=== PATIENT | female | born 1955 | race Caucasian/White ===

== ENCOUNTER 2016-05-16 14:17 | Inpatient (IN) | payer MEDICAID, OTHER ==
[~2016-05-16] VITALS: Ht 162.6 cm; Wt 86.8 kg
[~2016-05-16 14:17] MED LIST: DIPH25CA85 PO; DIVA500T35 PO; DIVA500T52 PO; FLUP25VI5 IM; LURA40 PO; OLAN10TA3 PO; OLAN10TA6 PO; QUET100T PO; QUET200T PO; QUET25TA PO
[2016-05-16] MEDS ORDERED: HALOPERIDOL LACTATE 5 MG/ML VIAL IM ONE (16:00)
[2016-05-16 16:52] LABS: ANION GAP 10 mmol/L (8-16); CALCIUM, TOTAL 9.5 mg/dL (8.8-10.5); CARBON DIOXIDE 28 mmol/L (22-29); CHLORIDE 106 mmol/L (98-107); CREATININE 0.97 mg/dL (0.60-1.30); GLOMERULAR FILTR. RATE CALC 59 mL/min (>60); POTASSIUM 4.3 mmol/L (3.5-5.1); SODIUM SERUM 144 mmol/L (136-145); UREA NITROGEN, BLOOD 17 mg/dL (7-18)
[2016-05-16 17:00] LABS: ALANINE AMINOTRANSFERASE 25 U/L (12-78); ALBUMIN 3.9 g/dL (3.4-5.0); ASPARTATE AMINOTRANSFERASE 31 U/L (15-37); BILIRUBIN,TOTAL 0.7 mg/dL (0.1-1.0); TOTAL PROTEIN, SERUM 7.8 g/dL (6.4-8.2)
[2016-05-16 17:10] LABS: BASOPHILS % (AUTO) 0.6 % (0.0-2.0); EOSINOPHILS % (AUTO) 2.2 % (1.0-6.0); HEMATOCRIT 42.7 % (36-46); HEMOGLOBIN 13.6 g/dL (12.0-16.0); LYMPHOCYTES # (AUTO) 2.4 K/uL (1.0-4.8); LYMPHOCYTES % (AUTO) 31.4 % (22.0-44.0); MEAN CORPUSCULAR HEMOGLOBIN 25.6 pg (26.0-34.0); MEAN CORPUSCULAR HGB CONC 31.8 G/dL (31.0-37.0); MEAN CORPUSCULAR VOLUME 80 fL (80-100); MONOCYTES # (AUTO) 0.6 K/uL (0.1-1.0); MONOCYTES % (AUTO) 8.2 % (2.0-9.0); NEUTROPHILS # (AUTO) 4.4 K/uL (1.8-7.7); NEUTROPHILS % (AUTO) 57.6 % (40.0-70.0); PLATELET COUNT (AUTO) 197 K/uL (150-450); RED BLOOD CELL COUNT(AUTO) 5.31 MIL/uL (4.00-5.20); RED CELL DISTRIBUTION WIDTH 16.1 % (11.5-14.5); WHITE BLOOD COUNT (AUTO) 7.6 K/uL (4.5-11.0)
[2016-05-16 17:16] LABS: VALPROIC ACID < 3 mcg/mL (50-100)
[2016-05-16 21:29] VITALS: BP 140/86
[2016-05-17 07:04] VITALS: BP 129/74
[2016-05-17 08:39] VITALS: BP 107/56
[2016-05-17] MEDS: NYSTATIN 15 GM POWDER BOTTLE TP SCH ×2 (08:58→16:31)
[2016-05-17] MEDS: LORazepam 2 MG TABLET PO PRN (10:21)
[2016-05-17] MEDS: HALOPERIDOL 5 MG TABLET PO PRN (10:21)
[2016-05-17 16:26] VITALS: BP 116/82
[2016-05-17] MEDS: FluPHENAZine HCL 5 MG TABLET PO SCH (17:07)
[2016-05-17] MEDS: BENZTROPINE MESYLATE 0.5 MG TABLET PO SCH (17:07)
[2016-05-18] MEDS: ZOLPIDEM TARTRATE 10 MG TABLET PO PRN (02:06)
[2016-05-18 04:00] VITALS: BP 136/84
[2016-05-18 08:26] VITALS: BP 135/81
[2016-05-18] MEDS: NYSTATIN 15 GM POWDER BOTTLE TP SCH ×3 (08:43→17:07)
[2016-05-18] MEDS: BENZTROPINE MESYLATE 0.5 MG TABLET PO SCH ×2 (08:44→17:06)
[2016-05-18] MEDS: FluPHENAZine HCL 5 MG TABLET PO SCH ×2 (08:44→16:32)
[2016-05-18 16:15] VITALS: BP 133/72
[2016-05-18] MEDS: LORazepam 2 MG TABLET PO PRN ×2 (16:31→17:07)
[2016-05-19 06:44] VITALS: BP 136/61
[2016-05-19] MEDS: IBUPROFEN 400 MG TABLET PO PRN (06:56)
[2016-05-19 08:17] VITALS: BP 123/83
[2016-05-19 08:21] LABS: HEMOGLOBIN A1C 6.5 % (4.5-6.2)
[2016-05-19] MEDS: FluPHENAZine HCL 5 MG TABLET PO SCH ×2 (08:25→16:42)
[2016-05-19] MEDS: BENZTROPINE MESYLATE 0.5 MG TABLET PO SCH ×2 (08:25→16:43)
[2016-05-19] MEDS: NICOTINE 7 MG/24 HOUR PATCH TD SCH (08:31)
[2016-05-19] MEDS: NYSTATIN 15 GM POWDER BOTTLE TP SCH ×2 (08:31→16:43)
[2016-05-19] MEDS: LORazepam 2 MG TABLET PO PRN ×2 (08:33→16:43)
[2016-05-19 08:42] LABS: THYROID STIMULATING HORMONE 1.93 uIU/mL (0.36-3.74)
[2016-05-19 16:10] VITALS: BP 129/60
[2016-05-19] MEDS: ZOLPIDEM TARTRATE 10 MG TABLET PO PRN (20:59)
[2016-05-20 06:44] VITALS: BP 139/94
[2016-05-20] MEDS: BENZTROPINE MESYLATE 0.5 MG TABLET PO SCH ×2 (08:29→16:10)
[2016-05-20] MEDS: IBUPROFEN 400 MG TABLET PO PRN (08:29)
[2016-05-20] MEDS: NICOTINE 7 MG/24 HOUR PATCH TD SCH (08:29)
[2016-05-20] MEDS: FluPHENAZine HCL 5 MG TABLET PO SCH ×2 (08:29→16:10)
[2016-05-20] MEDS: NYSTATIN 15 GM POWDER BOTTLE TP SCH ×2 (08:29→16:10)
[2016-05-20 16:00] VITALS: BP 140/86
[2016-05-20] MEDS: LORazepam 2 MG TABLET PO PRN (17:46)
[2016-05-20] MEDS: ZOLPIDEM TARTRATE 10 MG TABLET PO PRN (21:07)
[2016-05-21 07:25] VITALS: BP 143/67
[2016-05-21 08:22] LABS: GLUCOSE,POINT OF CARE 138 MG/DL (70-110)
[2016-05-21 08:31] VITALS: BP 125/65
[2016-05-21] MEDS ORDERED: FluPHENAZine HCL 10 MG TABLET PO SCH (09:00)
[2016-05-21] MEDS: NICOTINE 7 MG/24 HOUR PATCH TD SCH (09:18)
[2016-05-21] MEDS: NYSTATIN 15 GM POWDER BOTTLE TP SCH ×2 (09:18→16:12)
[2016-05-21] MEDS: BENZTROPINE MESYLATE 1 MG TABLET PO SCH ×2 (09:18→16:11)
[2016-05-21 10:25] VITALS: BP 128/72
[2016-05-21] MEDS: ACETAMINOPHEN 325 MG TABLET PO PRN (10:29)
[2016-05-21] MEDS ORDERED: LOPERAMIDE HCL 2 MG CAPSULE PO PRN (10:30)
[2016-05-21 11:11] LABS: GLUCOSE,POINT OF CARE 96 MG/DL (70-110)
[2016-05-21 11:29] VITALS: BP 124/76
[2016-05-21 16:00] VITALS: BP 145/84
[2016-05-21] MEDS: LORazepam 2 MG TABLET PO PRN (16:11)
[2016-05-21] MEDS: CloZAPine 100 MG TABLET PO SCH (16:28)
[2016-05-21] MEDS: IBUPROFEN 400 MG TABLET PO PRN (17:11)
[2016-05-22 06:22] VITALS: BP 140/95
[2016-05-22 08:04] VITALS: BP 138/88
[2016-05-22] MEDS: BENZTROPINE MESYLATE 1 MG TABLET PO SCH ×2 (08:11→16:44)
[2016-05-22] MEDS: NICOTINE 7 MG/24 HOUR PATCH TD SCH (08:11)
[2016-05-22] MEDS: CloZAPine 100 MG TABLET PO SCH ×2 (08:11→16:44)
[2016-05-22] MEDS: NYSTATIN 15 GM POWDER BOTTLE TP SCH ×2 (08:12→17:11)
[2016-05-22] MEDS: ACETAMINOPHEN 325 MG TABLET PO PRN (09:43)
[2016-05-22 09:57] LABS: GLUCOSE,POINT OF CARE 99 MG/DL (70-110)
[2016-05-22] MEDS: HALOPERIDOL 5 MG TABLET PO PRN (14:18)
[2016-05-22 16:17] VITALS: BP 154/79
[2016-05-22] MEDS: LORazepam 2 MG TABLET PO PRN (16:44)
[2016-05-22] MEDS: IBUPROFEN 400 MG TABLET PO PRN (18:03)
[2016-05-23 03:15] VITALS: BP 162/105
[2016-05-23] MEDS: IBUPROFEN 400 MG TABLET PO PRN ×2 (03:15→16:50)
[2016-05-23 08:13] VITALS: BP 119/85
[2016-05-23] MEDS: BENZTROPINE MESYLATE 1 MG TABLET PO SCH ×2 (08:15→16:26)
[2016-05-23] MEDS: CloZAPine 100 MG TABLET PO SCH ×2 (08:15→16:26)
[2016-05-23] MEDS: NICOTINE 21 MG/24 HOUR PATCH TD SCH (08:16)
[2016-05-23] MEDS: NYSTATIN 15 GM POWDER BOTTLE TP SCH ×2 (08:16→16:27)
[2016-05-23 08:33] LABS: BASOPHILS % (AUTO) 0.5 % (0.0-2.0); EOSINOPHILS % (AUTO) 3.9 % (1.0-6.0); HEMOGLOBIN 13.4 g/dL (12.0-16.0); LYMPHOCYTES # (AUTO) 2.1 K/uL (1.0-4.8); MEAN CORPUSCULAR HEMOGLOBIN 25.6 pg (26.0-34.0); MEAN CORPUSCULAR HGB CONC 31.9 G/dL (31.0-37.0); MEAN CORPUSCULAR VOLUME 80 fL (80-100); MONOCYTES # (AUTO) 0.3 K/uL (0.1-1.0); MONOCYTES % (AUTO) 6.4 % (2.0-9.0); NEUTROPHILS # (AUTO) 2.7 K/uL (1.8-7.7); NEUTROPHILS % (AUTO) 50.2 % (40.0-70.0); PLATELET COUNT (AUTO) 207 K/uL (150-450); RED BLOOD CELL COUNT(AUTO) 5.23 MIL/uL (4.00-5.20); RED CELL DISTRIBUTION WIDTH 15.8 % (11.5-14.5); WHITE BLOOD COUNT (AUTO) 5.3 K/uL (4.5-11.0)
[2016-05-23 10:51] LABS: GLUCOSE,POINT OF CARE 114 MG/DL (70-110)
[2016-05-23 16:17] VITALS: BP 178/85
[2016-05-23] MEDS: HALOPERIDOL 5 MG TABLET PO PRN (16:27)
[2016-05-23] MEDS: LORazepam 2 MG TABLET PO PRN (16:27)
[2016-05-24 08:43] VITALS: BP 138/90
[2016-05-24] MEDS: NYSTATIN 15 GM POWDER BOTTLE TP SCH ×2 (08:43→16:05)
[2016-05-24] MEDS: CloZAPine 100 MG TABLET PO SCH ×2 (08:43→16:05)
[2016-05-24] MEDS: BENZTROPINE MESYLATE 1 MG TABLET PO SCH ×2 (08:43→16:05)
[2016-05-24] MEDS: NICOTINE 21 MG/24 HOUR PATCH TD SCH (08:44)
[2016-05-24 10:57] LABS: GLUCOSE,POINT OF CARE 141 MG/DL (70-110)
[2016-05-24 17:05] VITALS: BP 140/88
[2016-05-25 01:10] VITALS: BP 165/88
[2016-05-25] MEDS: CloNIDine HCL 0.1 MG TABLET PO PRN (01:12)
[2016-05-25 02:12] VITALS: BP 143/78
[2016-05-25] MEDS: NICOTINE 21 MG/24 HOUR PATCH TD SCH (08:49)
[2016-05-25] MEDS: BENZTROPINE MESYLATE 1 MG TABLET PO SCH ×2 (08:49→16:20)
[2016-05-25 08:51] VITALS: BP 118/70
[2016-05-25] MEDS: IBUPROFEN 400 MG TABLET PO PRN (08:52)
[2016-05-25] MEDS: CloZAPine 100 MG TABLET PO SCH ×2 (08:52→16:20)
[2016-05-25] MEDS: NYSTATIN 15 GM POWDER BOTTLE TP SCH ×2 (08:53→16:20)
[2016-05-25] MEDS: ACETAMINOPHEN 325 MG TABLET PO PRN (12:48)
[2016-05-25 16:00] VITALS: BP 146/79
[2016-05-25] MEDS: HALOPERIDOL 5 MG TABLET PO PRN (16:21)
[2016-05-25] MEDS: LORazepam 2 MG TABLET PO PRN (16:21)
[2016-05-26 07:10] VITALS: BP 134/76
[2016-05-26] MEDS: IBUPROFEN 400 MG TABLET PO PRN (07:15)
[2016-05-26 08:42] VITALS: BP 164/119
[2016-05-26] MEDS: CloZAPine 100 MG TABLET PO SCH ×2 (09:11→16:19)
[2016-05-26] MEDS: BENZTROPINE MESYLATE 1 MG TABLET PO SCH ×2 (09:11→16:19)
[2016-05-26] MEDS: NICOTINE 21 MG/24 HOUR PATCH TD SCH (09:12)
[2016-05-26] MEDS: NYSTATIN 15 GM POWDER BOTTLE TP SCH ×2 (09:15→16:19)
[2016-05-26] MEDS: ACETAMINOPHEN 325 MG TABLET PO PRN (09:19)
[2016-05-26 16:00] VITALS: BP 153/76
[2016-05-26] MEDS: CloNIDine HCL 0.1 MG TABLET PO PRN (18:34)
[2016-05-26 19:35] VITALS: BP 140/70
[2016-05-26] MEDS: ZOLPIDEM TARTRATE 10 MG TABLET PO PRN (20:53)
[2016-05-27 02:49] VITALS: BP 118/60
[2016-05-27 09:00] VITALS: BP 150/70
[2016-05-27] MEDS: BENZTROPINE MESYLATE 1 MG TABLET PO SCH ×2 (10:01→16:03)
[2016-05-27] MEDS: HALOPERIDOL 5 MG TABLET PO PRN (10:01)
[2016-05-27] MEDS: LORazepam 2 MG TABLET PO PRN ×2 (10:01→16:04)
[2016-05-27] MEDS: NICOTINE 21 MG/24 HOUR PATCH TD SCH (10:01)
[2016-05-27] MEDS: CloZAPine 100 MG TABLET PO SCH ×2 (10:01→16:03)
[2016-05-27] MEDS: NYSTATIN 15 GM POWDER BOTTLE TP SCH ×2 (10:01→16:17)
[2016-05-27 10:06] LABS: GLUCOSE,POINT OF CARE 111 MG/DL (70-110)
[2016-05-27 14:46] LABS: CLOZAPINE 325 ng/mL (350-650); CLOZAPINE & NORCLOZAPINE 452 ng/mL; NORCLOZAPINE 127 ng/mL (Not Estab.)
[2016-05-27 16:40] VITALS: BP 128/80
[2016-05-28 00:08] VITALS: BP 133/90
[2016-05-28] MEDS: LORazepam 2 MG TABLET PO PRN ×2 (00:10→16:45)
[2016-05-28] MEDS: IBUPROFEN 400 MG TABLET PO PRN (00:32)
[2016-05-28] MEDS: NYSTATIN 15 GM POWDER BOTTLE TP SCH ×2 (08:19→16:44)
[2016-05-28] MEDS: BENZTROPINE MESYLATE 1 MG TABLET PO SCH ×2 (08:19→16:45)
[2016-05-28] MEDS: CloZAPine 100 MG TABLET PO SCH ×2 (08:19→16:45)
[2016-05-28] MEDS: NICOTINE 21 MG/24 HOUR PATCH TD SCH (08:19)
[2016-05-28 08:44] VITALS: BP 131/78
[2016-05-28 10:06] LABS: GLUCOSE,POINT OF CARE 108 MG/DL (70-110)
[2016-05-28 16:37] VITALS: BP 146/88
[2016-05-29] MEDS: BENZTROPINE MESYLATE 1 MG TABLET PO SCH ×2 (08:37→16:15)
[2016-05-29] MEDS: NICOTINE 21 MG/24 HOUR PATCH TD SCH (08:37)
[2016-05-29] MEDS: NYSTATIN 15 GM POWDER BOTTLE TP SCH ×2 (08:37→16:15)
[2016-05-29] MEDS: CloZAPine 100 MG TABLET PO SCH ×2 (08:37→16:15)
[2016-05-29] MEDS: HALOPERIDOL 5 MG TABLET PO PRN (08:52)
[2016-05-29 08:59] VITALS: BP 150/118
[2016-05-29] MEDS: CloNIDine HCL 0.1 MG TABLET PO PRN (09:16)
[2016-05-29 09:26] LABS: APPEARANCE,URINE CLEAR (CLEAR); GLUCOSE, URINE (UA) NEGATIVE (NEGATIVE); KETONES,URINE NEGATIVE (NEGATIVE); LEUKOCYTE ESTERASE ,URINE NEGATIVE (NEGATIVE); OCCULT BLOOD,URINE NEGATIVE (NEGATIVE); PROTEIN,URINE NEGATIVE (NEGATIVE)
[2016-05-29 09:31] LABS: ADD UA MICROSCOPIC NO
[2016-05-29 10:25] VITALS: BP 152/86
[2016-05-29 18:27] VITALS: BP 151/84
[2016-05-29 19:30] VITALS: BP 142/82
[2016-05-29 21:06] LABS: GLUCOSE,POINT OF CARE 124 MG/DL (70-110)
[2016-05-29] MEDS: ZOLPIDEM TARTRATE 10 MG TABLET PO PRN (21:12)
[2016-05-30 03:10] VITALS: BP 144/95
[2016-05-30] MEDS: LORazepam 2 MG TABLET PO PRN ×2 (03:14→16:05)
[2016-05-30 04:17] VITALS: BP 132/86
[2016-05-30] MEDS: ACETAMINOPHEN 325 MG TABLET PO PRN (04:20)
[2016-05-30 08:26] VITALS: BP 140/77
[2016-05-30] MEDS: BENZTROPINE MESYLATE 1 MG TABLET PO SCH ×2 (08:37→16:51)
[2016-05-30] MEDS: NYSTATIN 15 GM POWDER BOTTLE TP SCH ×2 (08:37→17:03)
[2016-05-30] MEDS: CloZAPine 100 MG TABLET PO SCH ×2 (08:37→16:50)
[2016-05-30] MEDS: NICOTINE 21 MG/24 HOUR PATCH TD SCH (08:37)
[2016-05-30] MEDS: IBUPROFEN 400 MG TABLET PO PRN (08:44)
[2016-05-30] MEDS: HALOPERIDOL 5 MG TABLET PO PRN (08:44)
[2016-05-30 16:22] LABS: GLUCOSE,POINT OF CARE 121 MG/DL (70-110)
[2016-05-30 16:30] VITALS: BP 132/81
[2016-05-31] VITALS (7 sets, daily range): BP systolic 136–160; BP diastolic 72–85
[2016-05-31] MEDS: ACETAMINOPHEN 325 MG TABLET PO PRN (03:15)
[2016-05-31 09:07] LABS: GLUCOSE,POINT OF CARE 120 MG/DL (70-110)
[2016-05-31] MEDS: BENZTROPINE MESYLATE 1 MG TABLET PO SCH ×2 (09:08→16:31)
[2016-05-31] MEDS: CloZAPine 100 MG TABLET PO SCH ×3 (09:08→16:31)
[2016-05-31] MEDS: NICOTINE 21 MG/24 HOUR PATCH TD SCH (09:09)
[2016-05-31] MEDS: NYSTATIN 15 GM POWDER BOTTLE TP SCH ×2 (09:09→16:32)
[2016-05-31] MEDS: CloNIDine HCL 0.1 MG TABLET PO PRN ×2 (09:12→16:50)
[2016-05-31] MEDS: IBUPROFEN 400 MG TABLET PO PRN (13:07)
[2016-05-31] MEDS: LORazepam 2 MG TABLET PO PRN (16:31)
[2016-06-01 01:05] VITALS: BP 134/60
[2016-06-01] MEDS: IBUPROFEN 400 MG TABLET PO PRN ×2 (01:10→18:25)
[2016-06-01] MEDS: BENZTROPINE MESYLATE 1 MG TABLET PO SCH ×2 (08:18→16:58)
[2016-06-01] MEDS: NYSTATIN 15 GM POWDER BOTTLE TP SCH ×2 (08:18→16:58)
[2016-06-01] MEDS: CloZAPine 100 MG TABLET PO SCH ×3 (08:18→20:24)
[2016-06-01] MEDS: NICOTINE 21 MG/24 HOUR PATCH TD SCH (08:18)
[2016-06-01 09:22] VITALS: BP 146/84
[2016-06-01 09:32] LABS: BASOPHILS % (AUTO) 0.5 % (0.0-2.0); EOSINOPHILS % (AUTO) 3.7 % (1.0-6.0); HEMATOCRIT 39.4 % (36-46); HEMOGLOBIN 12.6 g/dL (12.0-16.0); LYMPHOCYTES # (AUTO) 1.9 K/uL (1.0-4.8); LYMPHOCYTES % (AUTO) 28.1 % (22.0-44.0); MEAN CORPUSCULAR HEMOGLOBIN 25.5 pg (26.0-34.0); MEAN CORPUSCULAR HGB CONC 31.9 G/dL (31.0-37.0); MEAN CORPUSCULAR VOLUME 80 fL (80-100); MONOCYTES # (AUTO) 0.4 K/uL (0.1-1.0); NEUTROPHILS # (AUTO) 4.2 K/uL (1.8-7.7); NEUTROPHILS % (AUTO) 61.7 % (40.0-70.0); PLATELET COUNT (AUTO) 199 K/uL (150-450); RED BLOOD CELL COUNT(AUTO) 4.93 MIL/uL (4.00-5.20); RED CELL DISTRIBUTION WIDTH 15.6 % (11.5-14.5); WHITE BLOOD COUNT (AUTO) 6.8 K/uL (4.5-11.0)
[2016-06-01 10:46] LABS: GLUCOSE,POINT OF CARE 158 MG/DL (70-110)
[2016-06-01 16:16] VITALS: BP 148/89
[2016-06-01] MEDS: LORazepam 2 MG TABLET PO PRN (16:57)
[2016-06-01 18:22] VITALS: BP 139/78
[2016-06-01] MEDS: ZOLPIDEM TARTRATE 10 MG TABLET PO PRN (21:10)
[2016-06-01 21:31] LABS: GLUCOSE,POINT OF CARE 172 MG/DL (70-110)
[2016-06-02 03:25] VITALS: BP 121/72
[2016-06-02] MEDS: IBUPROFEN 400 MG TABLET PO PRN (03:26)
[2016-06-02] MEDS: NICOTINE 21 MG/24 HOUR PATCH TD SCH (08:04)
[2016-06-02] MEDS: BENZTROPINE MESYLATE 1 MG TABLET PO SCH ×2 (08:05→17:12)
[2016-06-02] MEDS: NYSTATIN 15 GM POWDER BOTTLE TP SCH ×2 (08:05→17:12)
[2016-06-02] MEDS: CloZAPine 100 MG TABLET PO SCH ×3 (08:05→20:22)
[2016-06-02] MEDS: CloNIDine HCL 0.1 MG TABLET PO PRN (08:05)
[2016-06-02 08:28] VITALS: BP 177/85
[2016-06-02 09:05] VITALS: BP 134/78
[2016-06-02 11:42] LABS: GLUCOSE,POINT OF CARE 135 MG/DL (70-110)
[2016-06-02 16:38] VITALS: BP 142/100
[2016-06-02 18:32] VITALS: BP 145/103
[2016-06-02] MEDS: ACETAMINOPHEN 325 MG TABLET PO PRN (18:42)
[2016-06-03] MEDS: LORazepam 2 MG TABLET PO PRN
[2016-06-03 00:10] VITALS: BP 148/92
[2016-06-03] MEDS: NYSTATIN 15 GM POWDER BOTTLE TP SCH (08:09)
[2016-06-03] MEDS: CloNIDine HCL 0.1 MG TABLET PO PRN (08:09)
[2016-06-03] MEDS: BENZTROPINE MESYLATE 1 MG TABLET PO SCH (08:09)
[2016-06-03] MEDS: CloZAPine 100 MG TABLET PO SCH (08:09)
[2016-06-03] MEDS: NICOTINE 21 MG/24 HOUR PATCH TD SCH (08:11)
[2016-06-03 08:53] VITALS: BP 171/78
[2016-06-03 09:09] VITALS: BP 149/67
[2016-06-03] MEDS ORDERED: CLOZ100 PO ×3 (09:44→09:45)
[2016-06-03] MEDS ORDERED: BENZ2TAB10 PO (09:44)
== END 2016-06-03 20:51 | disposition home or self-care (01) | DRG 750 ==
LOC: EMS 14:18 → B3A 19:42
PROVIDERS: ADMIT Psychiatry & Neurology Psychiatry; ATTEND Psychiatry & Neurology Psychiatry
DX: F25.0 Schizoaffective disorder, bipolar type (principal); J44.9 Chronic obstructive pulmonary disease, unspecified; I10 Essential (primary) hypertension; E78.5 Hyperlipidemia, unspecified; F20.0 Paranoid schizophrenia; K21.9 Gastro-esophageal reflux disease without esophagitis; F19.10 Other psychoactive substance abuse, uncomplicated; Z86.19 Personal history of other infectious and parasitic diseases; Z59.0 Homelessness; Z95.0 Presence of cardiac pacemaker; Z79.899 Other long term (current) drug therapy; Z71.89 Other specified counseling
CPT/HCPCS: 80159; 80307; 82962; 83036; 84443; 96372; 99285; G0480; J1630